=== PATIENT | female | born 1935 | race African-American/Black ===

== ENCOUNTER 2024-01-27 15:23 | Emergency (ER) | payer OTHER ==
[~2024-01-27] VITALS: Ht 162.6 cm; Wt 72.6 kg
[2024-01-27 15:25] VITALS: BP_SYST 170; PULSE 83; RESP 18; TEMP 98; O2SAT 100
[2024-01-27 18:07] VITALS: BP_SYST 154; PULSE 79; RESP 18; TEMP 98; O2SAT 100
== END 2024-01-27 18:07 | disposition home or self-care (01) ==
LOC: SED 15:23
DX: S63.91XA Sprain of unspecified part of right wrist and hand, initial encounter (principal); S43.491A Other sprain of right shoulder joint, initial encounter; I10 Essential (primary) hypertension; Z79.899 Other long term (current) drug therapy; V89.2XXA Person injured in unspecified motor-vehicle accident, traffic, initial encounter; Y93.89 Activity, other specified; Y92.89 Other specified places as the place of occurrence of the external cause; Y99.8 Other external cause status
CPT/HCPCS: 73030; 99284